=== PATIENT | female | born 1990 | race Caucasian/White ===

== ENCOUNTER 2017-02-11 12:41 | Emergency (ER) | payer OTHER ==
[~2017-02-11] VITALS: Ht 165.1 cm; Wt 84.4 kg
[~2017-02-11 12:41] MED LIST: ADDERALL 10 MG10 MG PO; ADDERALL10 MG PO; AMOXICILLIN500 M3 PO; AMOXICILLIN500 MG PO; CIPROFLOXACIN500 MG PO; FERROUS SULFAT325 M1 PO; FLEXERIL10 MG PO; FLEXERIL5 MG PO; HYDROCODONE BIT1 T11 PO; IBU800 MG PO; IRON90 MG PO; LEVOTHYROXIN0.025 MG PO; LOMOTIL 0.025 M1 TA1 PO; MOTRIN800 MG PO; NORFLEX100 MG PO; OMEPRAZOLE20 MG PO; PNV-SELECT1 TAB PO; PREDNICOT20 MG PO; PREDNISONE10 MG PO; PREDNISONE20 MG PO; PRENATAL1 TA2 PO; TRAMADOL HCL50 MG PO; ULTRAM50 MG PO; ZOFRAN ODT4 MG SL; ZOFRAN4 MG PO
[2017-02-11 12:55] VITALS: BP 167/100
[2017-02-11] MEDS ORDERED: ADDERALL XR10 MG PO (12:56)
[2017-02-11] MEDS ORDERED: NAPROSYN500 MG PO (13:42)
== END 2017-02-11 13:58 | disposition home or self-care (01) ==
LOC: ED 12:41
DX: K08.89 Other specified disorders of teeth and supporting structures (principal); F17.200 Nicotine dependence, unspecified, uncomplicated; Z79.899 Other long term (current) drug therapy

== ENCOUNTER → 2017-05-03 | Outpatient (CLI) | payer OTHER ==
[~2017-05-03] MED LIST changes: +ADDERALL XR10 MG PO; +NAPROSYN500 MG PO
== END | disposition home or self-care (01) ==
LOC: CARD 13:29
DX: Z51.81 Encounter for therapeutic drug level monitoring (principal); Z79.899 Other long term (current) drug therapy

== ENCOUNTER 2017-07-10 08:20 | Emergency (ER) | payer OTHER ==
[~2017-07-10] VITALS: Ht 4968 cm; Wt 73.9 kg
[2017-07-10 08:29] VITALS: BP 144/77
[2017-07-10] MEDS ORDERED: KEFLEX500 M1 PO (10:32)
[2017-07-10] MEDS ORDERED: IBU800 MG PO (10:32)
== END 2017-07-10 10:45 | disposition home or self-care (01) ==
LOC: ED 08:20
DX: S91.332A Puncture wound without foreign body, left foot, initial encounter (principal); F17.200 Nicotine dependence, unspecified, uncomplicated; Z79.899 Other long term (current) drug therapy; X58.XXXA Exposure to other specified factors, initial encounter; Y93.89 Activity, other specified; Y92.89 Other specified places as the place of occurrence of the external cause; Y99.8 Other external cause status

== ENCOUNTER 2017-08-05 16:59 | Emergency (ER) | payer OTHER ==
[~2017-08-05] VITALS: Ht 165.1 cm; Wt 71.2 kg
[~2017-08-05 16:59] MED LIST changes: +KEFLEX500 M1 PO
[2017-08-05 17:18] VITALS: BP 134/85
[2017-08-05] MEDS ORDERED: Tobrex Ophth S2.5 ML OPH (17:57)
== END 2017-08-05 18:49 | disposition home or self-care (01) ==
LOC: ED 16:59
DX: H10.32 Unspecified acute conjunctivitis, left eye (principal); F17.200 Nicotine dependence, unspecified, uncomplicated; Z79.899 Other long term (current) drug therapy

== ENCOUNTER 2017-11-29 17:53 | Emergency (ER) | payer OTHER ==
[~2017-11-29] VITALS: Wt 77.1 kg
[~2017-11-29 17:53] MED LIST changes: +Tobrex Ophth S2.5 ML OPH
[2017-11-29 17:54] VITALS: BP 147/82
[2017-11-29] MEDS ORDERED: CYCLOBENZAPRINE10 MG PO (19:47)
[2017-11-29] MEDS ORDERED: NAPROSYN500 MG PO (19:47)
== END 2017-11-29 19:50 | disposition home or self-care (01) ==
LOC: ED 17:53
DX: S00.83XA Contusion of other part of head, initial encounter (principal); S30.0XXA Contusion of lower back and pelvis, initial encounter; S20.212A Contusion of left front wall of thorax, initial encounter; F17.200 Nicotine dependence, unspecified, uncomplicated; Z79.899 Other long term (current) drug therapy; V89.2XXA Person injured in unspecified motor-vehicle accident, traffic, initial encounter; Y93.89 Activity, other specified; Y92.89 Other specified places as the place of occurrence of the external cause; Y99.8 Other external cause status

== ENCOUNTER 2018-05-03 15:23 | Emergency (ER) | payer OTHER ==
[~2018-05-03] VITALS: Ht 167.6 cm; Wt 66.7 kg
[~2018-05-03 15:23] MED LIST changes: +CYCLOBENZAPRINE10 MG PO
[2018-05-03 15:26] VITALS: BP 121/73
[2018-05-03 16:34] LABS: BASO % 0.2 % (0.0-1.0); EOS % 0.4 % (1.0-4.0); HEMATOCRIT 43.3 % (37.0-47.0); HEMOGLOBIN 14.4 g/dl (12.0-16.0); LYMPH # 1.9 10*3/uL (1.3-4.4); LYMPH % 21.2 % (27.0-41.0); MEAN CELL VOLUME 91.4 fl (81.0-99.0); MEAN CORPUSCULAR HGB 30.4 pg (27.0-31.0); MEAN CORPUSCULAR HGB CONC 33.3 g/dl (33.0-37.0); MEAN PLATELET VOLUME 10.2 fl (9.6-12.3); MONO % 10.7 % (3.0-9.0); NEUT # 6.1 10*3/uL (2.3-7.9); NEUT % 67.3 % (47.0-73.0); PLATELET COUNT AUTOMATED 212 10*3/uL (130-400); RED BLOOD COUNT 4.74 10*6/uL (4.10-5.10); WHITE BLOOD COUNT 9.1 10*3/uL (4.8-10.8)
[2018-05-03 16:51] LABS: ALBUMIN 3.4 gm/dl (3.1-4.5); ALKALINE PHOSPHATASE 133 U/L (45-117); BUN 6 mg/dl (7-24); CHLORIDE 106 mmol/L (98-107); CREATININE 0.69 mg/dL (0.55-1.02); POTASSIUM 3.4 mmol/L (3.5-5.1); SGOT/AST 14 IU/L (3-35); SGPT/ALT 26 U/L (12-78); SODIUM 138 mmol/L (136-145); TOTAL PROTEIN 8.3 gm/dL (6.4-8.2)
[2018-05-03] MEDS ORDERED: DOXYCYCLINE100 M3 PO (18:47)
[2018-05-03] MEDS ORDERED: PREDNISONE10 MG PO (18:47)
== END 2018-05-03 18:46 | disposition home or self-care (01) ==
LOC: ED 15:23
PROVIDERS: Nurse Practitioner
DX: J18.0 Bronchopneumonia, unspecified organism (principal); L03.317 Cellulitis of buttock; Z79.899 Other long term (current) drug therapy

== ENCOUNTER 2019-04-30 17:29 | Emergency (ER) | payer OTHER ==
[~2019-04-30] VITALS: Ht 167.6 cm; Wt 79.4 kg
--- NOTE | ~2019-04-30 | EKG ---
[place], [place] ELECTROCARDIOGRAM REPORT NAME: TREVOR HOUGH UNIT #: [id number] ROOM: DOCTOR: EPIPHANY DRAFT REPORT BIRTHDATE: [birth year] [facility] Test Date: 2019-04-30 Test Time: 18:26:57 Pat Name: TREVOR HOUGH Department: Room: Gender: F Overlock Operator: : 1990 Requested By: JOAQUIN KAMARA Order Number: [id number] Reading MD: Josiane Hairston MD Measurements Intervals [place] Rate: 71 P: 66 AR: 117 QRS: 57 QRSD: 98 T: 38 QT: 392 QTc: 426 Interpretive Statements Sinus rhythm Borderline short AR interval Electronically Signed On 05-01-2019 14:36:14 PDT by Josiane Hairston MD CM:EKGRPT:ELECTROCARDIOGRAM REPORT [id number] JOAQUIN PALMA DRAFT REPORT JOAQUIN KAMARA DO
[~2019-04-30 17:29] MED LIST changes: +DOXYCYCLINE100 M3 PO
[2019-04-30 17:40] VITALS: BP 132/77
[2019-04-30 18:09] LABS: BASO # 0.1 10*3/uL (0.0-0.1); BASO % 0.3 % (0.0-1.0); EOS # 0.1 10*3/uL (0.0-0.4); EOS % 0.4 % (1.0-4.0); HEMATOCRIT 42.7 % (37.0-47.0); HEMOGLOBIN 14.5 g/dl (12.0-16.0); LYMPH # 3.9 10*3/uL (1.3-4.4); MEAN CELL VOLUME 97.5 fl (81.0-99.0); MEAN CORPUSCULAR HGB 33.1 pg (27.0-31.0); MEAN PLATELET VOLUME 10.3 fl (9.6-12.3); MONO # 1.3 10*3/uL (0.1-1.0); MONO % 6.7 % (3.0-9.0); NEUT # 13.2 10*3/uL (2.3-7.9); NEUT % 71.2 % (47.0-73.0); PLATELET COUNT AUTOMATED 299 10*3/uL (130-400); RED BLOOD COUNT 4.38 10*6/uL (4.10-5.10); WHITE BLOOD COUNT 18.6 10*3/uL (4.8-10.8)
[2019-04-30 18:25] LABS: ALBUMIN 4.1 gm/dl (3.1-4.5); ALKALINE PHOSPHATASE 100 U/L (45-117); BUN 13 mg/dl (7-24); CHLORIDE 108 mmol/L (98-107); CREATININE 0.97 mg/dL (0.55-1.02); POTASSIUM 3.6 mmol/L (3.5-5.1); SGOT/AST 16 IU/L (3-35); SGPT/ALT 21 U/L (12-78); SODIUM 136 mmol/L (136-145); TOTAL PROTEIN 8.7 gm/dL (6.4-8.2)
[2019-04-30 18:26] LABS: ETHYL ALCOHOL < 3.0 mg/dl (<3)
[2019-04-30 18:28] LABS: BILIRUBIN 1+ (NEGATIVE); BLOOD TRACE-INTACT (NEGATIVE); CLARITY SL CLOUDY (CLEAR); COLOR YELLOW (YELLOW); GLUCOSE NEGATIVE (NEGATIVE); KETONE TRACE (NEGATIVE); LEUKO ESTERASE NEGATIVE (NEGATIVE); NITRITE NEGATIVE (NEGATIVE); PH 5.5 (5.0-9.0); SPECIFIC GRAVITY >= 1.030 (1.005-1.030); UROBILINOGEN 0.2 E.U./dl (0.2-1.0)
[2019-04-30 18:48] LABS: RBC 0-2 rbc/hpf (0-2); WBC 0-2 wbc/hpf (0-5)
[2019-04-30 19:05] LABS: URINE AMPHETAMINES < 1000 (1000ng/ml); URINE BENZODIAZEPINES < 200 (200ng/ml); URINE CANNABINOIDS (THC) > 50 (50ng/ml); URINE COCAINE > 300 (300ng/ml); URINE METHADONE < 300 (300ng/ml); URINE OPIATES < 300 (300ng/ml)
[2019-04-30 19:09] LABS: URINE BARBITURATES < 200 (200ng/ml)
[2019-04-30 19:12] LABS: URINE PHENCYCLIDINE < 25 (25ng/ml)
== END 2019-04-30 22:00 | disposition left against medical advice (07) ==
LOC: ED 17:29
PROVIDERS: Emergency Medicine; Family Medicine
DX: S66.911A Strain of unspecified muscle, fascia and tendon at wrist and hand level, right hand, initial encounter (principal); S60.211A Contusion of right wrist, initial encounter; S00.211A Abrasion of right eyelid and periocular area, initial encounter; Z79.899 Other long term (current) drug therapy; W22.8XXA Striking against or struck by other objects, initial encounter; Y93.89 Activity, other specified; Y92.89 Other specified places as the place of occurrence of the external cause; Y99.8 Other external cause status

== ENCOUNTER 2020-07-05 03:02 | Emergency (ER) | payer OTHER ==
[2020-07-05 03:03] VITALS: BP 136/85
== END 2020-07-05 05:00 ==
LOC: ED 03:02
DX: S20.20XA Contusion of thorax, unspecified, initial encounter (principal); Z79.899 Other long term (current) drug therapy; V89.2XXA Person injured in unspecified motor-vehicle accident, traffic, initial encounter; Y93.89 Activity, other specified; Y92.89 Other specified places as the place of occurrence of the external cause; Y99.8 Other external cause status

== ENCOUNTER 2021-05-13 00:21 | Emergency (ER) | payer OTHER | END 2021-05-13 01:22 | disposition left against medical advice (07) | LOC: ED 00:21 | DX: S01.319A Laceration without foreign body of unspecified ear, initial encounter (principal); Z53.21 Procedure and treatment not carried out due to patient leaving prior to being seen by health care provider; X58.XXXA Exposure to other specified factors, initial encounter; Y93.89 Activity, other specified; Y99.8 Other external cause status ==